=== PATIENT | female | born 2005 | race American Indian/Alaskan Native ===

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

== ENCOUNTER 2025-06-02 19:51 | Emergency (ER) | payer MEDICAID ==
[2025-06-02 20:39] VITALS: BP 120/71; PULSE 84
[2025-06-02 20:41] LABS: BASOPHILS ABSOLUTE AUTO 0.0 x10^3/uL (0.0-0.2); BASOPHILS PERCENT AUTO 0.3 % (0.2-1.2); EOSINOPHILS ABSOLUTE AUTO 0.0 x10^3/uL (0.0-0.5); EOSINOPHILS PERCENT AUTO 0.2 % (0.0-4.0); IMMATURE GRAN ABSOLUTE AUTO 0.12 x10^3/uL (0.00-0.07); IMMATURE GRAN PERCENT AUTO 0.90 % (0.00-0.43); LYMPHOCYTES ABSOLUTE AUTO 1.9 x10^3/uL (1.0-4.8); LYMPHOCYTES PERCENT AUTO 14.7 % (25.0-50.0); MONOCYTES ABSOLUTE AUTO 0.9 x10^3/uL (0.0-0.8); MONOCYTES PERCENT AUTO 7.1 % (2.0-11.0); NEUTROPHILS ABSOLUTE AUTO 9.8 x10^3/uL (1.8-7.7); NEUTROPHILS PERCENT AUTO 76.8 % (50.0-80.0); PLATELET COUNT,PLT 194 x10^3/uL (130-400); RED BLOOD CELL COUNT 3.95 x10^6/uL (4.00-5.50); WHITE BLOOD CELL COUNT,WBC 12.8 x10^3/uL (4.0-10.0)
[2025-06-02 20:53] LABS: A/G RATIO 0.68; ALANINE AMINOTRANSFERASE,ALT 15.0 U/L (14-59); ASPARTATE AMNIOTRANSFERASE,AST 15.0 U/L (15-37); BILIRUBIN TOTAL 0.3 mg/dL (0.2-1.0); BLOOD UREA NITROGEN,BUN 9.0 mg/dL (7-18); CARBON DIOXIDE,CO2 23.0 mmol/L (21-32); CHLORIDE,CL 107.0 mmol/L (98-107); CREATININE 0.7 mg/dL (0.55-1.02); EST CRCL DRUG DOSING (CG) 110.7 mL/min; GLUCOSE RANDOM 132.0 mg/dL (70-99); POTASSIUM,K 3.8 mmol/L (3.5-5.1); PROTEIN TOTAL,TP 6.2 g/dL (6.4-8.2); SODIUM,NA 140.0 mmol/L (136-145)
[2025-06-02 20:54] LABS: ESTIMATED GFR 127.0 mL/min (>=60)
== END 2025-06-02 21:06 | disposition home or self-care (01) ==
LOC: VM.ED 19:51
DX: O99.891 Other specified diseases and conditions complicating pregnancy (principal); R10.11 Right upper quadrant pain; Z3A.36 36 weeks gestation of pregnancy; Z79.899 Other long term (current) drug therapy
CPT/HCPCS: 36415; 80053; 83690; 85025; 99284

== ENCOUNTER 2025-06-22 11:38 | Emergency (ER) | payer MEDICAID ==
[2025-06-22 12:10] VITALS: BP 128/81; PULSE 98
[2025-06-22 12:18] LABS: APPEARANCE,URINE SLIGHTLY CLOUDY (CLEAR); GLUCOSE,URINE 100 mg/dL (NEGATIVE); OCCULT BLOOD,URINE NEGATIVE (NEGATIVE)
[2025-06-24 13:17] LABS: C.TRACHOMATIS BY TMA Negative (Negative); N.GONORRHOEAE BY TMA Negative (Negative)
== END 2025-06-22 12:55 | disposition home or self-care (01) ==
LOC: VM.ED 11:38
DX: O62.4 Hypertonic, incoordinate, and prolonged uterine contractions (principal)
CPT/HCPCS: 81003; 82947; 87491; 87591; 99284

== ENCOUNTER 2025-06-22 14:48 | Emergency (ER) | payer MEDICAID ==
[2025-06-22 15:09] VITALS: BP 128/78; PULSE 90
== END 2025-06-22 15:40 | disposition short-term general hospital (02) ==
LOC: VM.ED 14:48
DX: O62.9 Abnormality of forces of labor, unspecified (principal); Z3A.39 39 weeks gestation of pregnancy; Z79.899 Other long term (current) drug therapy
CPT/HCPCS: 99283; 99284